=== PATIENT | female | born 1950 | race Caucasian/White ===

== ENCOUNTER 2019-10-07 05:56 | Day surgery (SDC) | payer MEDICARE, OTHER ==
[2019-10-03 11:35] LABS: ABSOLUTE EOSINOPHILS # (AUTO) 0.1 10^3/uL (0.0-0.6); ABSOLUTE LYMPHOCYTES (AUTO) 2.9 10^3/uL (0.5-4.7); ABSOLUTE MONOCYTES (AUTO) 0.4 10^3/uL (0.1-1.4); ABSOLUTE NEUT (AUTO) 2.9 10^3/uL (1.7-8.2); BASOPHILS % (AUTO) 0.3 % (0-2); HEMATOCRIT 41.3 % (36.0-47.0); LYMPHOCYTES % (AUTO) 45.5 % (13-45); MEAN CORPUSCULAR HEMOGLOBIN 31.8 pg (27.0-33.4); MEAN CORPUSCULAR HGB CONC 33.8 g/dL (32.0-36.0); MEAN CORPUSCULAR VOLUME 94 fl (80-97); MONOCYTES % (AUTO) 6.2 % (3-13); PLATELET COUNT 202 10^3/uL (150-450); RED BLOOD COUNT 4.39 10^6/uL (3.72-5.28); RED CELL DISTRIBUTION WIDTH 13.8 % (11.5-14.0); TOTAL CELLS COUNTED % (AUTO) 100 %; WHITE BLOOD COUNT 6.3 10^3/uL (4.0-10.5)
[2019-10-03 11:40] LABS: INTERNATIONAL RATION (INR) 0.99; PROTHROMBIN TIME 13.3 SEC (11.4-15.4)
[2019-10-03 11:41] LABS: APPEARANCE,URINE CLEAR; BILIRUBIN,URINE NEGATIVE (NEGATIVE); COLOR,URINE YELLOW; GLUCOSE, URINE NEGATIVE (NEGATIVE); KETONES,URINE NEGATIVE (NEGATIVE); LEUKOCYTE ESTERASE,URINE NEGATIVE (NEGATIVE); NITRITE,URINE NEGATIVE (NEGATIVE); PARTIAL THROMBOPLASTIN TIME 29.6 SEC (23.5-35.8); PROTEIN,URINE NEGATIVE (NEGATIVE); URINE SPECIFIC GRAVITY 1.008; UROBILINOGEN,URINE NEGATIVE mg/dL (<2.0)
[~2019-10-07 05:56] MED LIST: CEFAZOLIN 1 GM/D5W RTU 1 GM/50 ML RTUPB IV ONE; CEFAZOLIN 1 GM/D5W RTU 1 GM/50 ML RTUPB IV PRN
[2019-10-07] MEDS ORDERED: KETAMINE HCL INJ 500 MG/10 ML VIAL ONE (07:01)
[2019-10-07] MEDS ORDERED: FENTANYL CITRATE INJ/PF 100 MCG/2 ML AMPUL ONE (07:01)
[2019-10-07] MEDS ORDERED: MIDAZOLAM 2 MG/2 ML INJ ONE (07:02)
[2019-10-07] MEDS ORDERED: PROPOFOL INJ 200 MG/20 ML VIAL IV ONE (07:02)
[2019-10-07] MEDS ORDERED: LIDOCAINE 1% INJ-PF (10 MG/ML) 30 ML SDV ONE (07:31)
[2019-10-07] MEDS ORDERED: TRIAMCINOLONE ACETONIDE INJ 40 MG/1 ML VIAL ONE ×2 (07:31→08:22)
[2019-10-07] MEDS ORDERED: FENTANYL CITRATE INJ/PF 100 MCG/2 ML AMPUL IV PRN ×3 (08:26)
[2019-10-07] MEDS ORDERED: ONDANSETRON HCL INJ/PF 4 MG/2 ML SDV IV PRN (08:26)
[2019-10-07] MEDS ORDERED: DIPHENHYDRAMINE HCL 50 MG/ML VIAL IV PRN (08:26)
[2019-10-07] MEDS ORDERED: PROMETHAZINE HCL INJ 25 MG/1 ML VIAL IV PRN ×2 (08:26)
[2019-10-07] MEDS ORDERED: MEPERIDINE HCL/PF INJ 25 MG/1 ML DISP.SYRIN IV PRN (08:26)
--- NOTE | 2019-10-07 09:06 | Operative Report ---
Operative Report DATE OF SURGERY: 10/07/19 Operative Report: After obtaining informed consent advising the patient of the risk and benefits, including serious neurological injury bleeding infection allergic reaction and , she was taken to the operating room. She was placed comfortably in the prone position. She was then prepped with chlorhexidine with a suitable drying time prior to draping. Fluoroscopy was used to evaluate the spine. The L3-4 target space was identified. An epidural needle was used to enter the L3-4 space after anesthetizing 1% lidocaine to enter in the midline. Epidurogram was performed with appropriate spread and some limitation inferiorly at the L3-4 level of contrast. Landmarks were identified and a suitable track was determined for placement of mild instrumentation. Beginning on the left side a small incision was made after local anesthetic 1% lidocaine was applied. It was repeated on the right side at the selected entrance level. Mild instrumentation trocar was then advanced through the small incision down to the lamina of the L3-4 level on the left. Multiple x-ray views were taken particularly oblique and AP to assure satisfactory location. The bone rongeur was then utilized to remove the lamina and ligament at that level on the left in the superior and inferior regions. The tissue sculptor was then utilized to remove additional tissue. Improvement of the contrast spread was noted. This procedure was then repeated on the right as described above. Again, additional improvement in the contrast spread was noted. There was felt to be satisfactorily opening of the epidural space at L3/4. , resolving some of the spinal stenosis. All instrumentation was removed. The region was cleansed. Steristrips were placed followed by sterile dressings. The patient was then taken to the PACU for further postoperative care and monitoring. PREOPERATIVE DIAGNOSIS: lumbar spinal stenosis with neurogenic claudication POSTOPERATIVE DIAGNOSIS: lumbar spinal stenosis with neurogenic claudication OPERATION: [employer] SURGEON: FRANKLYN GONZALEZ ANESTHESIA: LMAC TISSUE REMOVED OR ALTERED: as noted COMPLICATIONS: none ESTIMATED BLOOD LOSS: 10 cc
[2019-10-07] MEDS ORDERED: OXYCODONE-ACETAMINOPHEN 5-325 MG TABLET PO PRN (09:33)
[2019-10-07 11:15] VITALS: BP 128/76
--- NOTE | 2019-10-07 15:56 | RADIOLOGY REPORT (SQ) ---
EXAM DESCRIPTION: NO CHG FLUORO; L SPINE 2 VIEWS IMAGES COMPLETED DATE/TIME: 10/07/2019 2:59 pm REASON FOR STUDY: MINIMALLY INVASIVE LUMBAR DECOMPRESSION ASSISTED WITH FLUORO IN OR COMPARISON: None. FLUOROSCOPY TIME: 6.9 minutes 15 Images saved to PACS LIMITATIONS: None. PROCEDURE: Lumbar decompression with fluoro FINDINGS: Images fluoro document the procedure. IMPRESSION: Lumbar decompression with fluoro. Refer to operative note for further information. COMMENT: PQRS 6045F: Fluoroscopy time of the procedure is documented in the report. TECHNICAL DOCUMENTATION: JOB ID: [id number] 2010 [employer]- All Rights Reserved Reading location - IP/workstation name: [email or web address]
--- NOTE | 2019-10-07 15:56 | RADIOLOGY REPORT (SQ) ---
EXAM DESCRIPTION: NO CHG FLUORO; L SPINE 2 VIEWS IMAGES COMPLETED DATE/TIME: 10/07/2019 2:59 pm REASON FOR STUDY: MINIMALLY INVASIVE LUMBAR DECOMPRESSION ASSISTED WITH FLUORO IN OR COMPARISON: None. FLUOROSCOPY TIME: 6.9 minutes 15 Images saved to PACS LIMITATIONS: None. PROCEDURE: Lumbar decompression with fluoro FINDINGS: Images fluoro document the procedure. IMPRESSION: Lumbar decompression with fluoro. Refer to operative note for further information. COMMENT: PQRS 6045F: Fluoroscopy time of the procedure is documented in the report. TECHNICAL DOCUMENTATION: JOB ID: [id number] 2010 [employer]- All Rights Reserved Reading location - IP/workstation name: [email or web address]
== END 2019-10-07 10:40 | disposition home or self-care (01) ==
LOC: OROUT 05:56
PROVIDERS: ATTEND Student in an Organized Health Care Education/Training Program
DX: M48.062 Spinal stenosis, lumbar region with neurogenic claudication (principal); Z00.6 Encounter for examination for normal comparison and control in clinical research program; J45.909 Unspecified asthma, uncomplicated; M19.90 Unspecified osteoarthritis, unspecified site; Z87.891 Personal history of nicotine dependence; Z88.5 Allergy status to narcotic agent; Z79.899 Other long term (current) drug therapy; Z03.818 Encounter for observation for suspected exposure to other biological agents ruled out; Z01.812 Encounter for preprocedural laboratory examination
CPT/HCPCS: 0275T; 36415; 85025; 85610; 85730; 81001; 72100; 00630; C1889; Q9966; U0003; J2250; J0690; J3010; J3490 ×2; J3301; J2704; C9803; 630; 87635